=== PATIENT | male | born 1985 | race Two or more races ===

== ENCOUNTER 2017-09-24 | Emergency (ER) | payer OTHER ==
[~2017-09-24] VITALS: Ht 170.2 cm; Wt 64.9 kg
[2017-09-24] MEDS ORDERED: SKELAXIN800 MG PO (03:29)
[2017-09-24] MEDS ORDERED: KETO10TA2 PO (03:29)
== END 2017-09-24 03:39 | disposition home or self-care (01) ==
LOC: ER
DX: S20.211A Contusion of right front wall of thorax, initial encounter (principal); W18.39XA Other fall on same level, initial encounter; Y93.89 Activity, other specified; Y92.098 Other place in other non-institutional residence as the place of occurrence of the external cause; Y99.8 Other external cause status